=== PATIENT | male | born 1955 | race Hispanic/Latino ===

== ENCOUNTER 2022-10-25 05:47 | Emergency (ER) | payer MEDICARE, MEDICAID ==
[2022-10-25] VITALS (13 sets, daily range): BP systolic 88–141; BP diastolic 51–74
[2022-10-25 06:29] LABS: BASO% 0.4 % (0-3); EOS% 0.5 % (0-8); HEMATOCRIT 42.6 % (39.0-50.0); HEMOGLOBIN 13.3 g/dl (14.0-18.0); IMMATURE GRANULOCYTES 0.2 % (0.0-5.0); LYMPH% 6.7 % (15-41); MEAN CELL VOLUME 82.7 fL CALC (80.0-100.0); MEAN CORPUSCULAR HGB 25.8 pG CALC (26.0-32.0); MEAN CORPUSCULAR HGB CONC 31.2 g/dL CAL (32.0-36.0); MONO% 5.7 % (2-13); NEUT# 9.62 thou/uL (1.82-7.42); NEUT% 86.5 % (42-76); RED BLOOD COUNT 5.15 mill/uL (4.70-6.10); RED CELL DISTRI WIDTH 14.9 % (11.5-15.5)
[2022-10-25 06:30] LABS: URINE BILIRUBIN - DIPSTICK NEGATIVE (NEGATIVE); URINE BLOOD DIPSTICK NEGATIVE (NEGATIVE); URINE COLOR YELLOW; URINE GLUCOSE - DIPSTICK 100 mg/dL (NEGATIVE); URINE KETONE NEGATIVE (NEGATIVE); URINE LEUK ESTERASE NEGATIVE (NEGATIVE); URINE PH 5.5 (4.5-8.0); URINE PROTEIN - DIPSTICK NEGATIVE (NEG-TRACE); URINE UROBILINOGEN - DIPSTICK 0.2 E.U./dL (0.2)
[2022-10-25 06:31] LABS: URINE NITRITE - DIPSTICK NEGATIVE (Negative)
[2022-10-25 06:43] LABS: ALKALINE PHOSPHATASE 133 u/l (38-126); ANION GAP 11 (6-22 (CALC)); BUN 17 mg/dL (8-23); BUN/CREATININE RATIO 12 (12-20 (CALC)); CARBON DIOXIDE 24 mmol/l (22-30); CHLORIDE 109 mmol/l (95-108); CREATININE 1.4 mg/dL (0.7-1.3); GFR FOR AFR.AMER. > 60 ML/MIN (>=60 (CALC)); GFR OTHER RACES 51 ML/MIN (>=60 (CALC)); POTASSIUM 3.6 mmol/l (3.5-5.1); SGOT/AST 41 u/l (19-48); SODIUM 140 mmol/l (137-146); TOTAL PROTEIN 6.8 g/dL (6.3-8.2)
[2022-10-25 06:44] LABS: INTERNATIONAL NORMALIZED RATIO 1.2 RATIO (0.7-1.3); PROTHROMBIN TIME 11.6 SECONDS (9.0-12.5)
[2022-10-25] MEDS ORDERED: PREDNISONE50 MG PO (08:12)
[2022-10-25] MEDS ORDERED: VENTOLIN HFA108 MCG PO (08:12)
[2022-10-25] MEDS ORDERED: ZPAK PO (08:12)
== END 2022-10-25 08:21 | disposition left against medical advice (07) ==
LOC: ED 05:47
PROVIDERS: Emergency Medicine
DX: J44.1 Chronic obstructive pulmonary disease with (acute) exacerbation (principal); I11.0 Hypertensive heart disease with heart failure; I50.9 Heart failure, unspecified; F17.200 Nicotine dependence, unspecified, uncomplicated; Z20.822 Contact with and (suspected) exposure to COVID-19; Z53.29 Procedure and treatment not carried out because of patient's decision for other reasons

== ENCOUNTER 2023-08-11 15:13 | Emergency (ER) | payer MEDICARE, MEDICAID ==
[2023-08-11] VITALS (16 sets, daily range): BP systolic 92–116; BP diastolic 50–64
[~2023-08-11] VITALS: Ht 175.3 cm; Wt 99.7 kg
[~2023-08-11 15:13] MED LIST: PREDNISONE10 MG PO; PREDNISONE50 MG PO; VENTOLIN HFA108 MCG PO; ZPAK PO
[2023-08-11 15:38] LABS: BASO% 0.2 % (0-3); EOS% 0.4 % (0-8); HEMATOCRIT 44.9 % (39.0-50.0); HEMOGLOBIN 14.4 g/dl (14.0-18.0); IMMATURE GRANULOCYTES 0.1 % (0.0-5.0); LYMPH% 7.6 % (15-41); MEAN CELL VOLUME 84.6 fL CALC (80.0-100.0); MEAN CORPUSCULAR HGB 27.1 pG CALC (26.0-32.0); MEAN CORPUSCULAR HGB CONC 32.1 g/dL CAL (32.0-36.0); NEUT# 11.29 thou/uL (1.82-7.42); NEUT% 84.7 % (42-76); RED BLOOD COUNT 5.31 mill/uL (4.70-6.10); RED CELL DISTRI WIDTH 13.2 % (11.5-15.5)
[2023-08-11 15:39] LABS: URINE BILIRUBIN - DIPSTICK Negative (NEGATIVE); URINE BLOOD DIPSTICK Negative (NEGATIVE); URINE GLUCOSE - DIPSTICK 500 mg/dL (NEGATIVE); URINE KETONE Negative (NEGATIVE); URINE LEUK ESTERASE Negative (NEGATIVE); URINE NITRITE - DIPSTICK Negative (Negative); URINE PH 5.5 (4.5-8.0); URINE PROTEIN - DIPSTICK Negative (NEG-TRACE); URINE UROBILINOGEN - DIPSTICK 0.2 E.U./dL (0.2)
[2023-08-11 15:40] LABS: URINE COLOR Yellow
[2023-08-11 15:57] LABS: ALBUMIN 4.4 g/dL (3.2-5.0); ALKALINE PHOSPHATASE 118 u/l (38-126); ANION GAP 14 (6-22 (CALC)); BILIRUBIN, TOTAL 0.8 mg/dL (0.2-1.3); BUN 18 mg/dL (8-23); BUN/CREATININE RATIO 14 (12-20 (CALC)); CARBON DIOXIDE 20 mmol/l (22-30); CHLORIDE 108 mmol/l (95-108); CREATININE 1.3 mg/dL (0.7-1.3); GFR FOR AFR.AMER. > 60 ML/MIN (>=60 (CALC)); GFR OTHER RACES 55 ML/MIN (>=60 (CALC)); POTASSIUM 4.5 mmol/l (3.5-5.1); SGOT/AST 43 u/l (19-48); SODIUM 138 mmol/l (137-146); TOTAL PROTEIN 7.2 g/dL (6.3-8.2)
[2023-08-11] MEDS ORDERED: DOXYCYCLINE100 MG PO (19:35)
== END 2023-08-11 19:40 | disposition left against medical advice (07) ==
LOC: ED 15:13
PROVIDERS: Family Medicine
DX: J44.1 Chronic obstructive pulmonary disease with (acute) exacerbation (principal); R94.31 Abnormal electrocardiogram [ECG] [EKG]; I11.0 Hypertensive heart disease with heart failure; I50.9 Heart failure, unspecified; Z53.29 Procedure and treatment not carried out because of patient's decision for other reasons; Z95.1 Presence of aortocoronary bypass graft; Z20.822 Contact with and (suspected) exposure to COVID-19
CPT/HCPCS: Q9967

== ENCOUNTER 2024-04-21 20:27 | Emergency (ER) | payer MEDICARE, MEDICAID ==
[2024-04-21] VITALS (9 sets, daily range): BP systolic 87–126; BP diastolic 47–90
[~2024-04-21] VITALS: Ht 165.1 cm; Wt 77.0 kg
[~2024-04-21 20:27] MED LIST changes: +DOXYCYCLINE100 MG PO
[2024-04-21] MEDS ORDERED: SODIUM CHLORIDE 0.9% 1,000 ML IV ONE ×2 (20:40→22:00)
[2024-04-21] MEDS ORDERED: PLAVIX75 MG PO (21:09)
[2024-04-21] MEDS ORDERED: INCRUSE EL62.5 MCG/I IN (21:09)
[2024-04-21] MEDS ORDERED: ZESTRIL10 M1 PO (21:10)
[2024-04-21] MEDS ORDERED: FUROSEMIDE20 MG PO (21:10)
[2024-04-21] MEDS ORDERED: ALDACTONE25 MG PO (21:10)
[2024-04-21] MEDS ORDERED: JARDIANCE10 MG PO (21:11)
[2024-04-21] MEDS ORDERED: LIPITOR80 M1 PO (21:11)
[2024-04-21] MEDS ORDERED: ALBUTEROL SUL0.083 % IN (21:12)
[2024-04-21 21:13] LABS: BASO% 0.3 % (0-3); EOS% 0.6 % (0-8); HEMATOCRIT 42.7 % (39.0-50.0); HEMOGLOBIN 13.5 g/dl (14.0-18.0); IMMATURE GRANULOCYTES 0.1 % (0.0-5.0); LYMPH% 12.8 % (15-41); MEAN CELL VOLUME 85.7 fL CALC (80.0-100.0); MEAN CORPUSCULAR HGB 27.1 pG CALC (26.0-32.0); MEAN CORPUSCULAR HGB CONC 31.6 g/dL CAL (32.0-36.0); MONO% 7.5 % (2-13); NEUT# 9.75 thou/uL (1.82-7.42); NEUT% 78.7 % (42-76); RED BLOOD COUNT 4.98 mill/uL (4.70-6.10); RED CELL DISTRI WIDTH 13.2 % (11.5-15.5)
[2024-04-21 21:27] LABS: ALBUMIN 3.6 g/dL (3.2-5.0); BILIRUBIN, TOTAL 0.7 mg/dL (0.2-1.3); CREATININE 1.9 mg/dL (0.7-1.3); MAGNESIUM 2.4 mg/dL (1.6-2.3); POTASSIUM 3.7 mmol/l (3.5-5.1); TOTAL PROTEIN 6.1 g/dL (6.3-8.2)
[2024-04-21 21:56] LABS: TSH, 3RD GENERATION 0.61 uIU/mL (0.47 - 4.68)
[2024-04-21 23:24] LABS: URINE BILIRUBIN - DIPSTICK Negative (NEGATIVE); URINE BLOOD DIPSTICK Negative (NEGATIVE); URINE GLUCOSE - DIPSTICK >=1000 mg/dL (NEGATIVE); URINE KETONE Negative (NEGATIVE); URINE LEUK ESTERASE Negative (NEGATIVE); URINE NITRITE - DIPSTICK Negative (Negative); URINE PH 5.5 (4.5-8.0); URINE PROTEIN - DIPSTICK Negative (NEG-TRACE); URINE UROBILINOGEN - DIPSTICK 0.2 E.U./dL (0.2)
[2024-04-21 23:35] LABS: URINE COLOR Yellow
[2024-04-22 00:16] VITALS: BP 134/79
== END 2024-04-22 00:30 | disposition home or self-care (01) ==
LOC: ED 20:27
PROVIDERS: Family Medicine
DX: R53.1 Weakness (principal); E86.0 Dehydration; I11.0 Hypertensive heart disease with heart failure; I50.9 Heart failure, unspecified; I25.10 Atherosclerotic heart disease of native coronary artery without angina pectoris; Z72.0 Tobacco use; Z20.822 Contact with and (suspected) exposure to COVID-19

== ENCOUNTER 2024-07-30 15:23 | Inpatient (IN) | payer MEDICARE, MEDICAID ==
[2024-07-30] VITALS (72 sets, daily range): BP systolic 98–141; BP diastolic 56–89
[~2024-07-30] VITALS: Ht 165.1 cm; Wt 69.2 kg
[~2024-07-30 15:23] MED LIST changes: +ALBUTEROL SUL0.083 % IN; +ALDACTONE25 MG PO; +FUROSEMIDE20 MG PO; +INCRUSE EL62.5 MCG/I IN; +JARDIANCE10 MG PO; +LIPITOR80 M1 PO; +PLAVIX75 MG PO; +ZESTRIL10 M1 PO
--- NOTE | 2024-07-30 15:25 | NUR ---
pt walked back to er room 6 with a steady gait
[2024-07-30] MEDS ORDERED: dilTIAZem HCL 50 MG/10 ML SDV IV ONE (15:40)
[2024-07-30] MEDS ORDERED: DILTIAZEM HCL 125 MG in SODIUM CHLORIDE 0.9% 100 ML IV ONE (15:40)
[2024-07-30] MEDS ORDERED: ASPIRIN 81 MG/TAB PO ONE (15:40)
[2024-07-30 15:58] LABS: BASO% 0.3 % (0-3); EOS% 0.3 % (0-8); HEMATOCRIT 47.3 % (39.0-50.0); HEMOGLOBIN 14.4 g/dl (14.0-18.0); IMMATURE GRANULOCYTES 0.1 % (0.0-5.0); LYMPH% 12.3 % (15-41); MEAN CELL VOLUME 88.1 fL CALC (80.0-100.0); MEAN CORPUSCULAR HGB 26.8 pG CALC (26.0-32.0); MEAN CORPUSCULAR HGB CONC 30.4 g/dL CAL (32.0-36.0); MONO% 7.1 % (2-13); NEUT# 7.55 thou/uL (1.82-7.42); NEUT% 79.9 % (42-76); RED BLOOD COUNT 5.37 mill/uL (4.70-6.10); RED CELL DISTRI WIDTH 20.6 % (11.5-15.5)
[2024-07-30] MEDS ORDERED: CARVEDILOL3.125 MG PO (15:59)
[2024-07-30] MEDS ORDERED: SODIUM CHLORIDE 0.9% 500 ML IV PRN (16:00)
[2024-07-30] MEDS ORDERED: MACRODANTIN100 MG PO (16:01)
[2024-07-30] MEDS ORDERED: BAYER ASPIRIN E81 MG PO (16:02)
[2024-07-30 16:10] LABS: INTERNATIONAL NORMALIZED RATIO 1.3 RATIO (0.7-1.3)
[2024-07-30 16:11] LABS: PROTHROMBIN TIME 14.2 SECONDS (9.0-12.5)
--- NOTE | 2024-07-30 16:13 | NUR ---
Pt received aspirin and cardizem bolus. Cardizem drip initiated at 1604
[2024-07-30 16:17] LABS: ALBUMIN 4.2 g/dL (3.2-5.0); CREATININE 1.8 mg/dL (0.7-1.3); TOTAL PROTEIN 7.3 g/dL (6.3-8.2)
[2024-07-30 16:20] LABS: BILIRUBIN, TOTAL 2.6 mg/dL (0.2-1.3); POTASSIUM 5.4 mmol/l (3.5-5.1)
[2024-07-30 17:16] LABS: URINE BILIRUBIN - DIPSTICK Negative (NEGATIVE); URINE BLOOD DIPSTICK Small (NEGATIVE); URINE COLOR Yellow; URINE GLUCOSE - DIPSTICK >=1000 mg/dL (NEGATIVE); URINE KETONE Negative (NEGATIVE); URINE LEUK ESTERASE Small (NEGATIVE); URINE NITRITE - DIPSTICK Negative (Negative); URINE PH 5.5 (4.5-8.0); URINE PROTEIN - DIPSTICK 30 mg/dL (NEG-TRACE); URINE SPECIFIC GRAVITY 1.015
[2024-07-30 17:20] LABS: URINE BACTERIA MANY hpf; URINE WBC >100 WBC/hpf (0-5)
--- NOTE | 2024-07-30 17:30 | NUR ---
Reassessment of patient completed. No distress noted. Vital signs stable on Cardizem drip.
--- NOTE | 2024-07-30 17:57 | NUR ---
Stopped Cardizem drip, provider notified. Pt c/o nausea/vomiting.
[2024-07-30] MEDS ORDERED: ONDANSETRON HCl 4 MG/2 ML SDV IV ONE (18:00)
--- NOTE | 2024-07-30 18:28 | NUR ---
Patient reports decrease in nausea after Zofran administration via IV. Resting in stretcher, chest x-ray/lab results pending.
--- NOTE | 2024-07-30 19:00 | NUR ---
RECIEVED REPORT FROM FRANCHESCA CHAPMAN.
[2024-07-30] MEDS ORDERED: Heparin SODIUM (Porcine) 500 ML IV ONE (19:05)
[2024-07-30] MEDS ORDERED: Heparin SODIUM (Porcine) 5,000 UNITS/ML SDV IV ONE (19:05)
[2024-07-30] MEDS ORDERED: MAGNESIUM HYDROXIDE 30 ML UDC PO PRN (19:55)
[2024-07-30] MEDS ORDERED: ACETAMINOPHEN 325 MG/TAB PO PRN (19:55)
[2024-07-30] MEDS ORDERED: Zaleplon 5 MG/CAP PO PRN (19:55)
--- NOTE | 2024-07-30 20:13 | NUR ---
PT GIVEN A MEAL AT THIS TIME.
[2024-07-30] MEDS ORDERED: ATORVASTATIN CALCIUM 40 MG/TAB PO SCH (21:00)
[2024-07-30] MEDS ORDERED: CARVEDILOL 3.125 MG/TAB PO SCH (21:00)
--- NOTE | 2024-07-30 21:30 | NUR ---
PT REPORT GIVEN TO SCOTT CHAPMAN.
--- NOTE | 2024-07-30 21:45 | NUR ---
[place] [facility] [place]
--- NOTE | 2024-07-30 22:00 | NUR ---
RECEIVED REPORT FROM ED NURSE ROSY, PATIENT TRANPORTED VIA WHEELCHAIR IV ON RAC HEPARIN ONGOING AT 800UNIT/HR, AND ANOTHER SALINE LOCK ON LAC. PATINET ON TELEMETRY# 13, PATIENT ALERT ORIENTED AMBULATORY, ARRIVED MS UNIT AT 2143, NOTIFIED MD ABOUT NO BASELINE PTT OBTAIN YET, ORDER TO START HEPARIN PROTOCOL, PATIENT DIABETIC BS 191, NEW ORDER TO START LOW DOSE SLIDING SCALE, AND START ROCEPHIN UTI, PATIENT BRINGING MEDS, PLACED IN MED ROOM, INVENTORY OF PATIENTS BELONGING DONE, PATIENT ORIENTED TO ROOM AND CALL LIGHT SYSTEM, FOOD PROVIDED, ADMISSION ASESSMENT COMPLETED.CALL LIGHT IN REACHED.
--- NOTE | 2024-07-30 22:05 | NUR ---
pt vitals at admission: Temp 97.0 BP 117/79 O2 94 P 67
--- NOTE | 2024-07-30 22:07 | NUR ---
Pt weight at admission 70.6 kg
--- NOTE | 2024-07-30 22:07 | NUR ---
Pt glucose at admission : 191 @2203
--- NOTE | 2024-07-30 22:10 | NUR ---
baseline ptt obtained at this time.
[2024-07-30] MEDS ORDERED: INSULIN LISPRO 100 UNITS/ML ML SC SCH (22:38)
[2024-07-30] MEDS ORDERED: DEXTROSE 250 ML IV PRN (22:40)
[2024-07-30] MEDS ORDERED: DEXTROSE 50% 50 ML/SYR IV PRN (22:40)
--- NOTE | 2024-07-30 23:35 | NUR ---
HELD HEPARIN INFUSION AT 2245,RESULT IS 90.1, RESUME AT 2345.
--- NOTE | 2024-07-30 23:52 | NUR ---
STARTED PATIENT BACK ON HEPARIN 600 U/HR
[2024-07-31] VITALS (9 sets, daily range): BP systolic 99–117; BP diastolic 61–75
--- NOTE | 2024-07-31 03:07 | NUR ---
REMAINS ON HEPARIN DRIP AT 600 UNIT/HR, PATINET NOT IN DSITRESS, NO BLEEDING NOTED CALL LIGHT WITHIN REACHED.
[2024-07-31] MEDS ORDERED: ONDANSETRON HCl 4 MG/2 ML SDV IV SCH (04:10)
--- NOTE | 2024-07-31 04:11 | NUR ---
C/O NAUSEA, ZODRAN GIVEN.
[2024-07-31 06:03] LABS: BASO% 0.5 % (0-3); HEMATOCRIT 43.3 % (39.0-50.0); HEMOGLOBIN 13.2 g/dl (14.0-18.0); LYMPH% 19.4 % (15-41); MEAN CELL VOLUME 87.8 fL CALC (80.0-100.0); MEAN CORPUSCULAR HGB 26.8 pG CALC (26.0-32.0); MEAN CORPUSCULAR HGB CONC 30.5 g/dL CAL (32.0-36.0); MONO% 10.4 % (2-13); NEUT# 6.01 thou/uL (1.82-7.42); NEUT% 67.7 % (42-76); RED BLOOD COUNT 4.93 mill/uL (4.70-6.10); RED CELL DISTRI WIDTH 20.9 % (11.5-15.5)
[2024-07-31 06:31] LABS: CHOLESTEROL HDL RATIO 1.8 (<4.4 (CALC)); MAGNESIUM 2.3 mg/dL (1.6-2.3)
--- NOTE | 2024-07-31 06:34 | NUR ---
PTT 33.4, INCREASESD HEPARIN DRIP 900 UNIT/HR.WILL FAX 4000 UNITS HEPARIN IV BOLUS, NEXT PTT AT 1230.
[2024-07-31] MEDS ORDERED: Heparin SODIUM (Porcine) 5,000 UNITS/ML SDV IV SCH (06:40)
--- NOTE | 2024-07-31 06:55 | NUR ---
pt glucose was 92 @0620
[2024-07-31] MEDS ORDERED: INSULIN LISPRO 100 UNITS/ML ML SC SCH (07:00)
--- NOTE | 2024-07-31 07:13 | NUR ---
PATIENT SITTING UP IN SIDE OF BED. BREATHING UNLABORED ON ROOM AIR. PATIENT A&OX3. TELE INTACT. IV IN RAC INFUSING FLUIDS PER EMAR;SITE CLEAN AND INTACT. IV IN LAC SL;SITE CLEAN AND INTACT. PERSONAL ITEMS WELL CALL LIGHT WITHIN REACH. PT WITH NO C/O OF PAIN OR N/D/V AT THIS TIME. BED IN LOWEST POSITION. NO NEEDS AT THIS TIME. POC ONGOING.
[2024-07-31 08:42] LABS: ALBUMIN 3.4 g/dL (3.2-5.0); BILIRUBIN, TOTAL 1.6 mg/dL (0.2-1.3); CREATININE 1.8 mg/dL (0.7-1.3); POTASSIUM 5.1 mmol/l (3.5-5.1); TOTAL PROTEIN 6.3 g/dL (6.3-8.2)
[2024-07-31] MEDS ORDERED: CLOPIDOGREL BISULFATE 75 MG/TAB TAB PO SCH (09:00)
[2024-07-31] MEDS ORDERED: APIXABAN BASE 5 MG TAB PO SCH (10:30)
[2024-07-31] MEDS ORDERED: METOPROLOL SUCCINATE 50 MG/TAB PO SCH (10:30)
[2024-07-31] MEDS ORDERED: ASPIRIN EC 81 MG/TAB PO SCH (10:30)
--- NOTE | 2024-07-31 11:04 | NUR ---
patient glucose level is 145.
--- NOTE | 2024-07-31 12:27 | NUR ---
PATIENT LYING IN BED WITH EYES CLOSED RESTING. BREATHING UNLABORED ON ROOM AIR. TELE INTACT. IV IN [facility] SL;SITE CLEAN AND INTACT. NO SIGNS OF DISTRESS OR PAIN NOTED AT THIS TIME. PERSONAL ITEMS WELL CALL LIGHT WITHIN REACH. BED IN LOWEST POSITION. NO NEEDS AT THIS TIME. POC ONGOING.
[2024-07-31] MEDS ORDERED: IPRATROPIUM-Albuterol 0.5MG-2.5MG/3 ML NEB PRN (12:45)
--- NOTE | 2024-07-31 16:21 | NUR ---
patient glucose level is 152.
--- NOTE | 2024-07-31 16:40 | NUR ---
PATIENT SITTING UP ON SIDE OF THE BED. BREATHING UNLABORED ON 2L NC. TELE INTACT. IV IN RAC/LAC SL;SITE CLEAN AND INTACT. PT DENIES ANY PAIN OR N/D/V AT THIS TIME. STATES HE IS HUNGRY; INFORMED HIM DINNER IS ON THE WAY AND PROVIDED LIGHT SNACK PER PT'S REQUEST. NO OTHER NEEDS AT THIS TIME. BED IN LOWEST POSITION. POC ONGOING.
--- NOTE | 2024-07-31 18:08 | NUR ---
PATIENT HAD MULTIPLE RUNS OF V-TACH. INFORMED AND AWARE. POC ONGOING.
--- NOTE | 2024-07-31 19:48 | NUR ---
PATIENT IV ON RAC DISLODGE, IV CATH REMOVED, CIV CATH INTACT.
--- NOTE | 2024-07-31 20:00 | NUR ---
RECEIVED REPORT FROM NURSE TANVI, PATIENT SEEN WALKING IN THE HALLWAY, IV ON LACPATENT FLUSHES WELL, DENIES PAIN AT THIS TIME, BREATHING UNLABORED, ON TELEMETRY AFIB 83, PATIENT NOT IN DISTRESS, STATED DID NOT HAVE MUCH SLEEP LAST NIGHT OFFERED SLEEP AID, CALL LIGHT WITHIN REACHED.
--- NOTE | 2024-07-31 23:55 | NUR ---
PATIENT RESTIN GIN BED, EYES CLOSED, BREATHING EVEN UNLABORED, NO DISCOMFORTS NOTE AT THIS TIME, TELEMETRY IN PLACED.
[2024-08-01 00:38] VITALS: BP 92/51
--- NOTE | 2024-08-01 02:29 | NUR ---
PATIENT ACCIDENTALLY PULLED IV, CATHETER INTACT NEW IV INSERTED LFA G 22.
[2024-08-01 03:55] VITALS: BP 115/62
--- NOTE | 2024-08-01 04:57 | NUR ---
PATINET AWAKE AT THIS TIME, REQUESTING COLD WATER TO DRINK, PATINET NOT IN DISTRESS, CALL LIGHT WITHIN [id number].
[2024-08-01 05:45] LABS: BASO% 0.4 % (0-3); EOS% 1.1 % (0-8); HEMOGLOBIN 13.1 g/dl (14.0-18.0); IMMATURE GRANULOCYTES 0.1 % (0.0-5.0); LYMPH% 12.5 % (15-41); MEAN CELL VOLUME 86.2 fL CALC (80.0-100.0); MEAN CORPUSCULAR HGB 26.9 pG CALC (26.0-32.0); MEAN CORPUSCULAR HGB CONC 31.2 g/dL CAL (32.0-36.0); MONO% 8.7 % (2-13); NEUT# 7.2 thou/uL (1.82-7.42); NEUT% 77.2 % (42-76); RED BLOOD COUNT 4.87 mill/uL (4.70-6.10)
[2024-08-01 06:23] LABS: ALBUMIN 3.2 g/dL (3.2-5.0); BILIRUBIN, TOTAL 1.3 mg/dL (0.2-1.3); CREATININE 1.8 mg/dL (0.7-1.3); MAGNESIUM 2.4 mg/dL (1.6-2.3); POTASSIUM 4.6 mmol/l (3.5-5.1); TOTAL PROTEIN 6.2 g/dL (6.3-8.2)
[2024-08-01 06:59] VITALS: BP 108/69
--- NOTE | 2024-08-01 06:59 | NUR ---
pt sugar was 136 @0620
[2024-08-01] MEDS ORDERED: Meropenem 1 GM in SODIUM CHLORIDE 0.9% 100 ML IV SCH (08:00)
--- NOTE | 2024-08-01 08:06 | NUR ---
PT IS ALERT TIMES 4. PT IS A STANDY ASSIST WITH AMBLUTORY IN HIS ROOM FOR STAFEY. PT ATE 100% OF HIS BREAKFAST. PT STARTED NEW IV ABT SECONDARY TO ESBL IN HIS URINE. PT HAS NO C/O PAIN. PT IS S/P HEPRAIN DRIPPING NO OBVIOUS BURISING OR BLEEDING NOTED. ALL SAFETY MEASURES IN PLACE CALL BAILEY WITHIN REACH. NURSING WILL CONTINUE TO MONITOR.
[2024-08-01] MEDS ORDERED: TOPROL XL50 MG PO (09:10)
[2024-08-01] MEDS ORDERED: ELIQUIS5 MG PO (09:10)
[2024-08-01] MEDS ORDERED: ERTAPENEM1 G1 IV (09:11)
[2024-08-01 10:57] VITALS: BP 99/62
[2024-08-01] MEDS ORDERED: ERTAPENEM 1 GM in SODIUM CHLORIDE 0.9% 50 ML IV SCH (11:00)
--- NOTE | 2024-08-01 12:14 | NUR ---
Pt is alert times 4 and can make his needs known. pt is being discharged on this shift. Pt is on IV ABT for esbl in his urine. iv abt given with no a/e noted. pt was educated on his discharge summary. Pt was educated on his IV abt treatments for the next 6 days. Pt verbalized understanding of the discharge instructions. 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 IV site to let A/C was removed after last dose for the day abt was infused. pt left the hospital with all his personal belongings and his discharge summary.
--- NOTE | 2024-08-01 14:18 | NUR ---
Discharge instructions given. Patient verbalizes understanding of same. Discharged in good condition via Wheelchair to Home with family. All belongings sent with pt.
[2024-08-01] MEDS ORDERED: NITROSTAT0.4 MG SL (17:46)
[2024-08-02] MEDS ORDERED: MEDDOSEPAK PO (10:26)
[2024-08-02] MEDS ORDERED: TRAMADOL HYDROC50 M1 PO (10:29)
[2024-08-02] MEDS ORDERED: NITROSTAT0.4 MG SL (10:31)
== END 2024-08-01 13:02 | disposition home or self-care (01) | DRG 309 ==
LOC: ED 15:23 → ED-I 19:10 → ED 19:21 → MS2 19:22
PROVIDERS: Nurse Practitioner; Nurse Practitioner Family; ADMIT Internal Medicine; ATTEND Internal Medicine
DX: I48.91 Unspecified atrial fibrillation (principal); I13.0 Hypertensive heart and chronic kidney disease with heart failure and stage 1 through stage 4 chronic kidney disease, or unspecified chronic kidney disease; N39.0 Urinary tract infection, site not specified; Z16.12 Extended spectrum beta lactamase (ESBL) resistance; B96.20 Unspecified Escherichia coli [E. coli] as the cause of diseases classified elsewhere; I50.9 Heart failure, unspecified; E11.22 Type 2 diabetes mellitus with diabetic chronic kidney disease; N18.9 Chronic kidney disease, unspecified; I25.10 Atherosclerotic heart disease of native coronary artery without angina pectoris; J44.9 Chronic obstructive pulmonary disease, unspecified; E78.5 Hyperlipidemia, unspecified; Z87.891 Personal history of nicotine dependence; Z79.84 Long term (current) use of oral hypoglycemic drugs; Z95.1 Presence of aortocoronary bypass graft
CPT/HCPCS: J0696; J1335; J1644; J1815; J2405

== ENCOUNTER 2024-08-01 13:54 | Observation (INO) | payer MEDICARE, MEDICAID ==
[~2024-08-01] VITALS: Ht 165.1 cm; Wt 67.0 kg
[2024-08-01] VITALS (17 sets, daily range): BP systolic 89–130; BP diastolic 48–92
[~2024-08-01 13:54] MED LIST changes: +BAYER ASPIRIN E81 MG PO; +CARVEDILOL3.125 MG PO; +ELIQUIS5 MG PO; +ERTAPENEM1 G1 IV; +MACRODANTIN100 MG PO; +TOPROL XL50 MG PO
[2024-08-01] MEDS ORDERED: ASPIRIN 81 MG/TAB PO ONE (14:00)
[2024-08-01 14:20] LABS: BASO% 0.7 % (0-3); EOS% 1.5 % (0-8); HEMATOCRIT 44.9 % (39.0-50.0); HEMOGLOBIN 13.7 g/dl (14.0-18.0); IMMATURE GRANULOCYTES 0.1 % (0.0-5.0); LYMPH% 16.7 % (15-41); MEAN CELL VOLUME 89.1 fL CALC (80.0-100.0); MEAN CORPUSCULAR HGB 27.2 pG CALC (26.0-32.0); MEAN CORPUSCULAR HGB CONC 30.5 g/dL CAL (32.0-36.0); MONO% 9.7 % (2-13); NEUT# 6.27 thou/uL (1.82-7.42); NEUT% 71.3 % (42-76); RED BLOOD COUNT 5.04 mill/uL (4.70-6.10); RED CELL DISTRI WIDTH 21.6 % (11.5-15.5)
[2024-08-01] MEDS ORDERED: NITROGLYCERIN 0.4 MG/TAB SL ONE (14:20)
[2024-08-01 15:02] LABS: ALBUMIN 3.2 g/dL (3.2-5.0); ALKALINE PHOSPHATASE 163 u/l (38-126); ANION GAP 14 (6-22 (CALC)); BILIRUBIN, TOTAL 1.1 mg/dL (0.2-1.3); BUN 28 mg/dL (8-23); BUN/CREATININE RATIO 16 (12-20 (CALC)); CARBON DIOXIDE 18 mmol/l (22-30); CHLORIDE 111 mmol/l (95-108); CREATININE 1.8 mg/dL (0.7-1.3); ESTIMATED GFR 40 ML/MIN (>=90 (CALC)); POTASSIUM 4.8 mmol/l (3.5-5.1); SGOT/AST 55 u/l (19-48); SODIUM 137 mmol/l (137-146)
[2024-08-01] MEDS ORDERED: NITROSTAT0.4 MG SL (17:46)
[2024-08-01] MEDS ORDERED: NITROGLYCERIN 2% OINT UD 1 GM/PAK TD ONE (17:55)
[2024-08-01] MEDS ORDERED: ACETAMINOPHEN 325 MG/TAB PO PRN (18:20)
[2024-08-01] MEDS ORDERED: MAGNESIUM HYDROXIDE 30 ML UDC PO PRN (18:20)
[2024-08-01] MEDS ORDERED: Zaleplon 5 MG/CAP PO PRN (18:20)
[2024-08-01] MEDS ORDERED: APIXABAN BASE 5 MG TAB PO SCH (21:00)
[2024-08-01] MEDS ORDERED: Meropenem 1 GM in SODIUM CHLORIDE 0.9% 100 ML IV SCH (22:00)
[2024-08-02 04:10] VITALS: BP 108/66
[2024-08-02 06:17] VITALS: BP 115/68
[2024-08-02] MEDS ORDERED: ASPIRIN EC 81 MG/TAB PO SCH (09:00)
[2024-08-02] MEDS ORDERED: METOPROLOL SUCCINATE 50 MG/TAB PO SCH (09:00)
[2024-08-02 10:06] VITALS: BP 103/62
[2024-08-02] MEDS ORDERED: MEDDOSEPAK PO (10:26)
[2024-08-02] MEDS ORDERED: TRAMADOL HYDROC50 M1 PO (10:29)
[2024-08-02] MEDS ORDERED: NITROSTAT0.4 MG SL (10:31)
[2024-08-02] MEDS ORDERED: ATORVASTATIN CALCIUM 40 MG/TAB PO SCH (17:00)
== END 2024-08-02 13:20 | disposition home or self-care (01) ==
LOC: ED 13:54 → ED-I 17:40 → ED 17:56 → MS2 17:57
PROVIDERS: Family Medicine; ADMIT Internal Medicine; ATTEND Internal Medicine
DX: R07.9 Chest pain, unspecified (principal); I11.0 Hypertensive heart disease with heart failure; I50.9 Heart failure, unspecified; I48.91 Unspecified atrial fibrillation; E11.9 Type 2 diabetes mellitus without complications; I25.10 Atherosclerotic heart disease of native coronary artery without angina pectoris; Z95.1 Presence of aortocoronary bypass graft; Z79.85 Long-term (current) use of injectable non-insulin antidiabetic drugs

== ENCOUNTER 2024-08-08 00:44 | Emergency (ER) | payer MEDICARE, MEDICAID ==
[2024-08-08] VITALS (17 sets, daily range): BP systolic 91–118; BP diastolic 64–82
[~2024-08-08] VITALS: Ht 165.1 cm; Wt 68.0 kg
[~2024-08-08 00:44] MED LIST changes: +MEDDOSEPAK PO; +NITROSTAT0.4 MG SL; +TRAMADOL HYDROC50 M1 PO
[2024-08-08] MEDS ORDERED: METOPROLOL TARTRATE 5 MG/5 ML VIAL IV ONE (00:55)
[2024-08-08] MEDS ORDERED: METOPROLOL TARTRATE 25 MG/TAB PO ONE (00:55)
[2024-08-08 01:10] LABS: BASO% 0.5 % (0-3); EOS% 3.8 % (0-8); HEMATOCRIT 41.8 % (39.0-50.0); HEMOGLOBIN 12.6 g/dl (14.0-18.0); IMMATURE GRANULOCYTES 0.2 % (0.0-5.0); MEAN CELL VOLUME 88.9 fL CALC (80.0-100.0); MEAN CORPUSCULAR HGB 26.8 pG CALC (26.0-32.0); MEAN CORPUSCULAR HGB CONC 30.1 g/dL CAL (32.0-36.0); MONO% 7.4 % (2-13); NEUT# 7.22 thou/uL (1.82-7.42); NEUT% 70.1 % (42-76); RED BLOOD COUNT 4.7 mill/uL (4.70-6.10); RED CELL DISTRI WIDTH 21.6 % (11.5-15.5)
[2024-08-08 01:26] LABS: ALBUMIN 3.4 g/dL (3.2-5.0); CREATININE 1.6 mg/dL (0.7-1.3); POTASSIUM 4.3 mmol/l (3.5-5.1); TOTAL PROTEIN 6.2 g/dL (6.3-8.2)
[2024-08-08] MEDS ORDERED: SODIUM CHLORIDE 0.9% 1,000 ML IV ONE (03:00)
[2024-08-08 03:06] LABS: URINE BILIRUBIN - DIPSTICK Negative (NEGATIVE); URINE BLOOD DIPSTICK Trace-intact (NEGATIVE); URINE GLUCOSE - DIPSTICK 500 mg/dL (NEGATIVE); URINE KETONE Negative (NEGATIVE); URINE LEUK ESTERASE Negative (NEGATIVE); URINE NITRITE - DIPSTICK Negative (Negative); URINE PH 5.5 (4.5-8.0); URINE PROTEIN - DIPSTICK 100 mg/dL (NEG-TRACE); URINE UROBILINOGEN - DIPSTICK 0.2 E.U./dL (0.2)
[2024-08-08 03:08] LABS: URINE COLOR Yellow
[2024-08-08 03:12] LABS: URINE BACTERIA FEW hpf; URINE EPITHELIAL CELLS FEW EPI/hpf (0-FEW)
== END 2024-08-08 05:07 | disposition home or self-care (01) ==
LOC: ED 00:44
PROVIDERS: Family Medicine
DX: R07.9 Chest pain, unspecified (principal); E11.9 Type 2 diabetes mellitus without complications; I11.0 Hypertensive heart disease with heart failure; I50.9 Heart failure, unspecified; Z87.891 Personal history of nicotine dependence; Z79.84 Long term (current) use of oral hypoglycemic drugs

== ENCOUNTER 2024-08-11 19:32 | Emergency (ER) | payer MEDICARE, MEDICAID ==
[~2024-08-11] VITALS: Ht 165.1 cm; Wt 68.0 kg
[2024-08-11 19:57] LABS: BASO% 0.8 % (0-3); EOS% 1.7 % (0-8); HEMATOCRIT 42.7 % (39.0-50.0); IMMATURE GRANULOCYTES 0.1 % (0.0-5.0); LYMPH% 22.8 % (15-41); MEAN CELL VOLUME 87.3 fL CALC (80.0-100.0); MEAN CORPUSCULAR HGB 26.6 pG CALC (26.0-32.0); MEAN CORPUSCULAR HGB CONC 30.4 g/dL CAL (32.0-36.0); NEUT# 5.54 thou/uL (1.82-7.42); NEUT% 66.6 % (42-76); RED BLOOD COUNT 4.89 mill/uL (4.70-6.10); RED CELL DISTRI WIDTH 20.4 % (11.5-15.5)
[2024-08-11 20:08] VITALS: BP 115/82
[2024-08-11 20:08] LABS: ALBUMIN 3.4 g/dL (3.2-5.0); BILIRUBIN, TOTAL 1.3 mg/dL (0.2-1.3); CREATININE 1.8 mg/dL (0.7-1.3); POTASSIUM 4.5 mmol/l (3.5-5.1); TOTAL PROTEIN 6.2 g/dL (6.3-8.2)
[2024-08-11 20:17] LABS: D-DIMER 2.68 mg/L (0.19-0.60); INTERNATIONAL NORMALIZED RATIO 1.5 RATIO (0.7-1.3)
[2024-08-11 20:20] LABS: PROTHROMBIN TIME 15.6 SECONDS (9.0-12.5)
[2024-08-11] MEDS ORDERED: SODIUM CHLORIDE 0.9% 1,000 ML IV ONE (20:40)
[2024-08-11 21:00] VITALS: BP 121/77
[2024-08-11 21:43] LABS: URINE BILIRUBIN - DIPSTICK Negative (NEGATIVE); URINE BLOOD DIPSTICK Negative (NEGATIVE); URINE GLUCOSE - DIPSTICK >=1000 mg/dL (NEGATIVE); URINE KETONE Negative (NEGATIVE); URINE LEUK ESTERASE Negative (NEGATIVE); URINE NITRITE - DIPSTICK Negative (Negative); URINE PROTEIN - DIPSTICK 100 mg/dL (NEG-TRACE); URINE UROBILINOGEN - DIPSTICK 0.2 E.U./dL (0.2)
[2024-08-11 21:44] LABS: URINE COLOR Yellow
[2024-08-11 21:53] LABS: URINE RBC 0-2 RBC/hpf (0-5); URINE WBC 0-2 WBC/hpf (0-5)
[2024-08-11 21:54] LABS: URINE HYALINE CAST FEW lpf (NONE-RARE); URINE RENAL EPITHELIAL CELLS FEW hpf
[2024-08-11 23:00] VITALS: BP 123/80
[2024-08-12] VITALS: BP 131/90
[2024-08-12 02:14] VITALS: BP 131/90
== END 2024-08-12 01:11 | disposition home or self-care (01) ==
LOC: ED 19:32
PROVIDERS: Family Medicine
DX: R06.02 Shortness of breath (principal); I11.0 Hypertensive heart disease with heart failure; I50.9 Heart failure, unspecified; E11.9 Type 2 diabetes mellitus without complications; Z95.1 Presence of aortocoronary bypass graft
CPT/HCPCS: Q9967

== ENCOUNTER 2024-08-16 15:23 | Observation (INO) | payer MEDICARE, MEDICAID ==
[~2024-08-16] VITALS: Ht 165.1 cm; Wt 77.2 kg
[2024-08-16] VITALS (9 sets, daily range): BP systolic 105–139; BP diastolic 66–86
[2024-08-16 16:00] LABS: BASO% 0.4 % (0-3); HEMOGLOBIN 14.2 g/dl (14.0-18.0); LYMPH% 12.4 % (15-41); MEAN CELL VOLUME 87.9 fL CALC (80.0-100.0); MEAN CORPUSCULAR HGB 26.5 pG CALC (26.0-32.0); MEAN CORPUSCULAR HGB CONC 30.2 g/dL CAL (32.0-36.0); MONO% 6.6 % (2-13); NEUT# 7.68 thou/uL (1.82-7.42); NEUT% 80.6 % (42-76); RED BLOOD COUNT 5.35 mill/uL (4.70-6.10); RED CELL DISTRI WIDTH 19.7 % (11.5-15.5)
[2024-08-16 16:12] LABS: ALBUMIN 3.7 g/dL (3.2-5.0); ALKALINE PHOSPHATASE 162 u/l (38-126); BILIRUBIN, TOTAL 1.6 mg/dL (0.2-1.3); BUN 26 mg/dL (8-23); BUN/CREATININE RATIO 14 (12-20 (CALC)); CHLORIDE 112 mmol/l (95-108); CREATININE 1.9 mg/dL (0.7-1.3); ESTIMATED GFR 38 ML/MIN (>=90 (CALC)); SGOT/AST 40 u/l (19-48); SODIUM 139 mmol/l (137-146); TOTAL PROTEIN 6.7 g/dL (6.3-8.2)
[2024-08-16 16:18] LABS: ANION GAP 20 (6-22 (CALC)); CARBON DIOXIDE 12 mmol/l (22-30)
[2024-08-16] MEDS ORDERED: FUROSEMIDE 40 MG/4 ML SDV IV ONE (17:05)
[2024-08-16] MEDS ORDERED: ASPIRIN 81 MG/TAB PO ONE (18:25)
[2024-08-16] MEDS ORDERED: NITROGLYCERIN 0.4 MG/TAB SL SCH (19:00)
[2024-08-16] MEDS ORDERED: ACETAMINOPHEN 325 MG/TAB PO PRN (19:00)
[2024-08-16] MEDS ORDERED: oxyCODONE HCL 5 MG/TAB PO PRN (19:00)
[2024-08-16] MEDS ORDERED: Polyethylene Glycol 3350 17 GM/PKT PO PRN (19:00)
[2024-08-16] MEDS ORDERED: ONDANSETRON 4 MG/TAB ODT SL PRN (19:00)
[2024-08-16 19:04] LABS: CHOLESTEROL HDL RATIO 2.2 (<4.4 (CALC))
[2024-08-16 19:36] LABS: TSH, 3RD GENERATION 2.51 uIU/mL (0.47 - 4.68)
[2024-08-16] MEDS ORDERED: APIXABAN BASE 5 MG TAB PO SCH (21:00)
[2024-08-16] MEDS ORDERED: INSULIN LISPRO 100 UNITS/ML ML SC SCH (21:00)
[2024-08-17] VITALS (7 sets, daily range): BP systolic 94–120; BP diastolic 56–80
[2024-08-17 06:42] LABS: BASO% 0.6 % (0-3); EOS% 0.4 % (0-8); HEMATOCRIT 42.6 % (39.0-50.0); IMMATURE GRANULOCYTES 0.1 % (0.0-5.0); LYMPH% 16.4 % (15-41); MEAN CELL VOLUME 85.4 fL CALC (80.0-100.0); MEAN CORPUSCULAR HGB 26.1 pG CALC (26.0-32.0); MEAN CORPUSCULAR HGB CONC 30.5 g/dL CAL (32.0-36.0); NEUT# 7.47 thou/uL (1.82-7.42); NEUT% 73.5 % (42-76); RED BLOOD COUNT 4.99 mill/uL (4.70-6.10); RED CELL DISTRI WIDTH 19.6 % (11.5-15.5)
[2024-08-17 06:50] LABS: ALBUMIN 3.1 g/dL (3.2-5.0); BILIRUBIN, TOTAL 1.1 mg/dL (0.2-1.3); CREATININE 1.9 mg/dL (0.7-1.3); POTASSIUM 4.6 mmol/l (3.5-5.1); TOTAL PROTEIN 5.9 g/dL (6.3-8.2)
[2024-08-17] MEDS ORDERED: ASPIRIN EC 81 MG/TAB PO SCH (09:00)
[2024-08-17] MEDS ORDERED: METOPROLOL SUCCINATE 50 MG/TAB PO SCH (09:00)
[2024-08-17] MEDS ORDERED: SPIRONOLACTONE 25 MG/TAB PO SCH (09:00)
[2024-08-17] MEDS ORDERED: NITROGLYCERIN 0.4 MG/TAB SL PRN (09:30)
[2024-08-17] MEDS ORDERED: FUROSEMIDE 40 MG/4 ML SDV IV SCH (10:00)
[2024-08-17] MEDS ORDERED: ATORVASTATIN CALCIUM 40 MG/TAB PO SCH (17:00)
[2024-08-18 01:10] VITALS: BP 95/64
[2024-08-18 04:36] VITALS: BP 103/62
[2024-08-18 05:29] LABS: BASO% 0.5 % (0-3); EOS% 1.3 % (0-8); HEMATOCRIT 42.4 % (39.0-50.0); HEMOGLOBIN 13.4 g/dl (14.0-18.0); IMMATURE GRANULOCYTES 0.1 % (0.0-5.0); LYMPH% 22.3 % (15-41); MEAN CELL VOLUME 85.5 fL CALC (80.0-100.0); MEAN CORPUSCULAR HGB CONC 31.6 g/dL CAL (32.0-36.0); MONO% 9.7 % (2-13); NEUT# 6.02 thou/uL (1.82-7.42); NEUT% 66.1 % (42-76); RED BLOOD COUNT 4.96 mill/uL (4.70-6.10); RED CELL DISTRI WIDTH 19.5 % (11.5-15.5)
[2024-08-18 05:31] LABS: ALBUMIN 2.9 g/dL (3.2-5.0); BILIRUBIN, TOTAL 1.2 mg/dL (0.2-1.3); CREATININE 1.9 mg/dL (0.7-1.3); MAGNESIUM 1.9 mg/dL (1.6-2.3); POTASSIUM 4.2 mmol/l (3.5-5.1); TOTAL PROTEIN 5.6 g/dL (6.3-8.2)
[2024-08-18 07:35] VITALS: BP 112/70
[2024-08-18 08:47] VITALS: BP 112/70
[2024-08-18] MEDS ORDERED: PATIENT' OWN MED 1 EA DOSE PO SCH (09:00)
[2024-08-18] MEDS ORDERED: LASIX20 MG PO ×2 (09:58→10:02)
== END 2024-08-18 11:42 | disposition home or self-care (01) ==
LOC: ED 15:23 → ED-I 18:18 → ED 18:48 → MS2 18:49
PROVIDERS: Family Medicine; ADMIT Internal Medicine; ATTEND Internal Medicine
DX: R07.89 Other chest pain (principal); I13.0 Hypertensive heart and chronic kidney disease with heart failure and stage 1 through stage 4 chronic kidney disease, or unspecified chronic kidney disease; I50.23 Acute on chronic systolic (congestive) heart failure; E11.22 Type 2 diabetes mellitus with diabetic chronic kidney disease; N18.9 Chronic kidney disease, unspecified; I48.0 Paroxysmal atrial fibrillation; I25.10 Atherosclerotic heart disease of native coronary artery without angina pectoris; T50.1X6A Underdosing of loop [high-ceiling] diuretics, initial encounter; Z91.128 Patient's intentional underdosing of medication regimen for other reason; Z95.1 Presence of aortocoronary bypass graft; Z79.84 Long term (current) use of oral hypoglycemic drugs; Z95.0 Presence of cardiac pacemaker; Z87.891 Personal history of nicotine dependence; Z20.822 Contact with and (suspected) exposure to COVID-19
CPT/HCPCS: J1940

== ENCOUNTER 2024-08-23 12:46 | Emergency (ER) | payer MEDICARE, MEDICAID ==
[2024-08-23] VITALS (35 sets, daily range): BP systolic 100–126; BP diastolic 54–90
[~2024-08-23] VITALS: Ht 165.1 cm; Wt 82.0 kg
[~2024-08-23 12:46] MED LIST changes: +LASIX20 MG PO
[2024-08-23] MEDS ORDERED: NITROGLYCERIN 0.4 MG/TAB SL ONE (13:05)
[2024-08-23] MEDS ORDERED: ASPIRIN 81 MG/TAB PO ONE (13:05)
[2024-08-23 13:26] LABS: BASO% 0.2 % (0-3); EOS% 0.3 % (0-8); HEMATOCRIT 44.4 % (39.0-50.0); HEMOGLOBIN 13.6 g/dl (14.0-18.0); IMMATURE GRANULOCYTES 0.2 % (0.0-5.0); LYMPH% 7.5 % (15-41); MEAN CELL VOLUME 85.1 fL CALC (80.0-100.0); MEAN CORPUSCULAR HGB 26.1 pG CALC (26.0-32.0); MEAN CORPUSCULAR HGB CONC 30.6 g/dL CAL (32.0-36.0); NEUT# 7.63 thou/uL (1.82-7.42); NEUT% 87.8 % (42-76); RED BLOOD COUNT 5.22 mill/uL (4.70-6.10); RED CELL DISTRI WIDTH 19.4 % (11.5-15.5)
[2024-08-23 13:32] LABS: CREATININE 2.1 mg/dL (0.7-1.3); TOTAL PROTEIN 6.7 g/dL (6.3-8.2)
[2024-08-23 13:40] LABS: ALBUMIN 3.6 g/dL (3.2-5.0); BILIRUBIN, TOTAL 2.2 mg/dL (0.2-1.3); POTASSIUM 5.3 mmol/l (3.5-5.1)
== END 2024-08-23 18:38 | disposition home or self-care (01) ==
LOC: ED 12:46
PROVIDERS: Family Medicine
DX: I25.729 Atherosclerosis of autologous artery coronary artery bypass graft(s) with unspecified angina pectoris (principal); I11.0 Hypertensive heart disease with heart failure; I50.9 Heart failure, unspecified; E11.9 Type 2 diabetes mellitus without complications; I48.91 Unspecified atrial fibrillation; Z79.01 Long term (current) use of anticoagulants; Z95.1 Presence of aortocoronary bypass graft; Z79.84 Long term (current) use of oral hypoglycemic drugs

== ENCOUNTER 2024-08-29 08:06 | Emergency (ER) | payer MEDICARE, MEDICAID ==
[2024-08-29] VITALS (16 sets, daily range): BP systolic 103–144; BP diastolic 60–101
[~2024-08-29] VITALS: Ht 165.1 cm; Wt 84.0 kg
[2024-08-29] MEDS ORDERED: ALBUTEROL SULFATE 2.5 MG VIAL IN ONE (10:50)
[2024-08-29 11:11] LABS: BASO% 0.1 % (0-3); HEMATOCRIT 46.2 % (39.0-50.0); HEMOGLOBIN 14.2 g/dl (14.0-18.0); IMMATURE GRANULOCYTES 0.2 % (0.0-5.0); LYMPH% 6.5 % (15-41); MEAN CELL VOLUME 84.3 fL CALC (80.0-100.0); MEAN CORPUSCULAR HGB 25.9 pG CALC (26.0-32.0); MEAN CORPUSCULAR HGB CONC 30.7 g/dL CAL (32.0-36.0); NEUT# 12.57 thou/uL (1.82-7.42); NEUT% 82.2 % (42-76); RED BLOOD COUNT 5.48 mill/uL (4.70-6.10)
[2024-08-29 11:19] LABS: ALBUMIN 3.3 g/dL (3.2-5.0); BILIRUBIN, TOTAL 1.8 mg/dL (0.2-1.3); CREATININE 2.4 mg/dL (0.7-1.3)
[2024-08-29 11:24] LABS: POTASSIUM 5.5 mmol/l (3.5-5.1)
[2024-08-29] MEDS ORDERED: VENTOLIN HFA108 MCG PO (13:36)
[2024-08-29] MEDS ORDERED: ONDANSETRON4 MG PO (13:36)
[2024-08-29] MEDS ORDERED: ONDANSETRON HCl 4 MG/2 ML SDV IV ONE (13:45)
== END 2024-08-29 14:04 | disposition home or self-care (01) ==
LOC: ED 08:06
PROVIDERS: Emergency Medicine
DX: J45.909 Unspecified asthma, uncomplicated (principal); E11.9 Type 2 diabetes mellitus without complications; I11.0 Hypertensive heart disease with heart failure; I50.9 Heart failure, unspecified; Z95.1 Presence of aortocoronary bypass graft
CPT/HCPCS: J2405

== ENCOUNTER 2024-09-08 13:38 | Observation (INO) | payer MEDICARE, MEDICAID ==
[~2024-09-08] VITALS: Ht 165.1 cm; Wt 84.0 kg
[2024-09-08] VITALS (25 sets, daily range): BP systolic 92–136; BP diastolic 64–94
[~2024-09-08 13:38] MED LIST changes: +ONDANSETRON4 MG PO
--- NOTE | 2024-09-08 13:40 | NUR ---
PT TO ROOM FOUR VIA WC.
[2024-09-08 14:16] LABS: BASO% 0.4 % (0-3); EOS% 0.3 % (0-8); HEMATOCRIT 46.2 % (39.0-50.0); HEMOGLOBIN 14.1 g/dl (14.0-18.0); IMMATURE GRANULOCYTES 0.2 % (0.0-5.0); LYMPH% 10.6 % (15-41); MEAN CELL VOLUME 83.4 fL CALC (80.0-100.0); MEAN CORPUSCULAR HGB 25.5 pG CALC (26.0-32.0); MEAN CORPUSCULAR HGB CONC 30.5 g/dL CAL (32.0-36.0); MONO% 7.1 % (2-13); NEUT# 8.54 thou/uL (1.82-7.42); NEUT% 81.4 % (42-76); RED BLOOD COUNT 5.54 mill/uL (4.70-6.10); RED CELL DISTRI WIDTH 19.4 % (11.5-15.5)
[2024-09-08 14:40] LABS: ALBUMIN 3.3 g/dL (3.2-5.0); CREATININE 2.7 mg/dL (0.7-1.3); POTASSIUM 4.5 mmol/l (3.5-5.1); TOTAL PROTEIN 6.2 g/dL (6.3-8.2)
--- NOTE | 2024-09-08 14:40 | NUR ---
PT RESTING COMFORTABLY IN ROOM
[2024-09-08 15:04] LABS: URINE BILIRUBIN - DIPSTICK Negative (NEGATIVE); URINE BLOOD DIPSTICK Small (NEGATIVE); URINE COLOR Yellow; URINE GLUCOSE - DIPSTICK 500 mg/dL (NEGATIVE); URINE KETONE Negative (NEGATIVE); URINE LEUK ESTERASE Negative (NEGATIVE); URINE NITRITE - DIPSTICK Negative (Negative); URINE PH 5.5 (4.5-8.0); URINE PROTEIN - DIPSTICK 100 mg/dL (NEG-TRACE); URINE SPECIFIC GRAVITY 1.015; URINE UROBILINOGEN - DIPSTICK 0.2 E.U./dL (0.2)
[2024-09-08] MEDS ORDERED: SODIUM CHLORIDE 0.9% 1,000 ML IV ONE (15:05)
[2024-09-08 15:14] LABS: URINE SQUAMOUS EPITHELIAL CELL FEW EPI/hpf (0-FEW); URINE WBC 0-2 WBC/hpf (0-5)
[2024-09-08 15:15] LABS: URINE BACTERIA RARE hpf
--- NOTE | 2024-09-08 15:30 | NUR ---
PT RESTING IN BED, PT GIVEN BLANKET FOR COMFORT, PT STATES HE DOES NOT NEED ANYTHING AT THIS TIME
[2024-09-08] MEDS ORDERED: BREZTRI AEROSPH1 AER (15:37)
--- NOTE | 2024-09-08 16:13 | NUR ---
PT AND FAMILY UPDATED ON POC, PT STATES HE HAS NO NEEDS AT THIS TIME
[2024-09-08 17:51] LABS: CREATININE 2.6 mg/dL (0.7-1.3); POTASSIUM 4.4 mmol/l (3.5-5.1)
--- NOTE | 2024-09-08 17:57 | NUR ---
PT RESTING IN BED, PT GIVEN BLANKET FOR COMFORT, CALL BAILEY IN REACH
--- NOTE | 2024-09-08 18:50 | NUR ---
PT RESTING IN ROOM, CALL BAILEY WITHIN REACH
--- NOTE | 2024-09-08 18:58 | NUR ---
CALLED [facility] SPOKE WITH ADELA LEYVA, GAVE PT INFO, PT TO BE TRANSPORTED TO [facility] [address]
[2024-09-08] MEDS ORDERED: SODIUM CHLORIDE 0.9% 1,000 ML IV PRN (19:35)
[2024-09-08] MEDS ORDERED: MAGNESIUM HYDROXIDE 30 ML UDC PO PRN (19:35)
[2024-09-08] MEDS ORDERED: ACETAMINOPHEN 325 MG/TAB PO PRN (19:35)
--- NOTE | 2024-09-08 19:58 | NUR ---
Admission Note Report Given to: AUTUMN. RN Transported by: X Wheelchair Stretcher Transported with: X Nurse Transporter X Patent IV O2 X Suppression Crew Leader Location: ICU X [facility]
[2024-09-08] MEDS ORDERED: APIXABAN BASE 2.5 MG/TAB TAB PO SCH (21:00)
--- NOTE | 2024-09-08 21:20 | NUR ---
PT ARRIVED TO MED-SURG FLOOR AROUND 2001 VIA WHEELCHAIR. REPORT RECEIVED FROM ER NURSE. ADMISSION AND BODY ASSESSMENT COMPLETED AT THIS TIME. PT WAS ABLE TO WALK FROM WHEELCHAIR TO THE BED. PT IS ALERT AND ORIENTED X4. DENIES ANY PAIN AT THIS MOMENT, RESPS ARE EVEN AND UNLABORED ON ROOM AIR. NO VISUAL SIGNS OF DISTRESS NOTED. TELE MONITOR #[address] WORKING WELL WITH LEADS INTACT. BLOOD SUGAR WAS CHECKED UPON [id number]. 20 G TO LAC FLUSHED WITH IV FLUIDS NORMAL SALINE ORDERED, SCHEDULED MEDS GIVEN TO PT. ABDOMEN IS DISTENDED BUT SOFT WITH ACTIVE BOWEL SOUNDS. EDEMA NOTED TO LESLIE FEET +2 WITH WEAK PEDAL PULSES, INSTRUCTED TO CALL FOR ASSISTANCE NEEDED. CALL LIGHT IS IN REACH AND SAFETY PRECAUTIONS IN PLACE.
[2024-09-09] VITALS (9 sets, daily range): BP systolic 95–114; BP diastolic 60–79
--- NOTE | 2024-09-09 | NUR ---
PATIENT RESTING IN BED WITH EYES CLOSED AT THIS TIME. BRETAHING IS EVEN AN DUNLABORED ON ROOM AIR. TELE MONITOR IN PLACE RUNNING A-FIB-84 AT THIS MOMENT. IVF NS INFUSING VIA LAC ORDERED. CALL LIGTH IS IN REACH AND SAFETY PRECAUTIONS IN PLACE.
--- NOTE | 2024-09-09 05:08 | NUR ---
PATIENT SITTING UP ON THE EDGE OF THE BED AT THIS TIME. DENIES ANY NEEDS, RESPS ARE EVEN AND UNLABORED NO VISUAL SIGNS OF DISTRESS, TELE MONITOR IN PLACE. IVF NS INFUSING ORDERED. CALL LIGHT IS IN REACH AND SAFETY PRECAUTIONS IN PLACE.
--- NOTE | 2024-09-09 07:28 | NUR ---
PATIENT A/O X3; ROOM AIR; BREATHING UNLABORED AND EVEN; DENIED ANY PAIN; DENIED ANY N/D/V AT THIS TIME; ASSESSMENT COMPLETED; PITTING EDEMA ON BULATERL FEET AND ANKLES, APPLIED COMPRESSION SOCKS; IV SITE CLEAN AND INTACT RUNNING WITH NS @100; TELE LEADS INTACT AND WORKING WITH NO ISSUES; CALL LIGHT WITHIN REACH,VERBALIZED UNDERSTANDING ON HOW TO USE, PERSONAL ITEMS WITHIN REACH; BEDIN LOWEST POSTION;SAFETY MEASURES IN PLACE; PATIENT LAYING ON RIGHT SIDE WITH NO COMPLAINTS
[2024-09-09 08:00] LABS: BASO% 0.6 % (0-3); EOS% 0.2 % (0-8); HEMATOCRIT 42.7 % (39.0-50.0); HEMOGLOBIN 13.4 g/dl (14.0-18.0); IMMATURE GRANULOCYTES 0.1 % (0.0-5.0); LYMPH% 11.3 % (15-41); MEAN CELL VOLUME 82.1 fL CALC (80.0-100.0); MEAN CORPUSCULAR HGB 25.8 pG CALC (26.0-32.0); MEAN CORPUSCULAR HGB CONC 31.4 g/dL CAL (32.0-36.0); MONO% 7.6 % (2-13); NEUT# 8.53 thou/uL (1.82-7.42); NEUT% 80.2 % (42-76); RED BLOOD COUNT 5.2 mill/uL (4.70-6.10); RED CELL DISTRI WIDTH 19.5 % (11.5-15.5)
[2024-09-09 08:12] LABS: BILIRUBIN, TOTAL 2.1 mg/dL (0.2-1.3); CREATININE 2.7 mg/dL (0.7-1.3); POTASSIUM 4.5 mmol/l (3.5-5.1); TOTAL PROTEIN 5.8 g/dL (6.3-8.2)
[2024-09-09 08:26] LABS: MAGNESIUM 2.5 mg/dL (1.6-2.3)
[2024-09-09] MEDS ORDERED: ASPIRIN EC 81 MG/TAB PO SCH (09:00)
[2024-09-09] MEDS ORDERED: METOPROLOL SUCCINATE 50 MG/TAB PO SCH (09:00)
[2024-09-09 09:17] LABS: TOTAL PROTEIN 5.8 g/dL (6.3-8.2)
[2024-09-09] MEDS ORDERED: SPIRONOLACTONE 25 MG/TAB PO SCH (10:30)
[2024-09-09 10:50] LABS: URINE BILIRUBIN - DIPSTICK Negative (NEGATIVE); URINE BLOOD DIPSTICK Trace-intact (NEGATIVE); URINE COLOR Yellow; URINE GLUCOSE - DIPSTICK 500 mg/dL (NEGATIVE); URINE KETONE Negative (NEGATIVE); URINE LEUK ESTERASE Negative (NEGATIVE); URINE NITRITE - DIPSTICK Negative (Negative); URINE PH 5.5 (4.5-8.0); URINE PROTEIN - DIPSTICK 30 mg/dL (NEG-TRACE); URINE SPECIFIC GRAVITY 1.015; URINE UROBILINOGEN - DIPSTICK 0.2 E.U./dL (0.2)
--- NOTE | 2024-09-09 10:53 | NUR ---
SPOKE TO SISTER, REGARDING PATIENT STATUS
--- NOTE | 2024-09-09 12:40 | NUR ---
PATIENT IN BED EATING LUNCH WITH NO ISSUES; DENIED ANY PAIN;DENIED ANY N/D/V AT THIS TIME; IV SITE CLEAN AND INTACT RUNNING; TELE LEADS INTACT AND WORKING AT THIS TIME; NO PAIN OR COMPLAINTS AT THIS TIME; DNEIED ANY N/D/V AT THIS SCOTT; NO S.S OF DISTRESS; CALL LIGHT WITHIN REACH; VERBALIZED UNDERSTANDING ON HOW TO USE, PERSONAL ITEMS WITHIN REACH; BED IN LOWEST POSTION;SAFETY MEASURES INPLACE
--- NOTE | 2024-09-09 16:21 | NUR ---
PATEINT RESTING IN BED; ROOM AIR; BREATHING UNLABROED AND EVEN;DENEID ANY PAIN; DENIED ANY ND/V/ AT THIS TIME; NO S.S OF DISTRESS; IV SITE CLEAN AND INTACT; NO COMPAINTS; TELE LEADS INTACT AND WORKING, SUPERVISOR STONE IN ROOM GETTIG GLUCOSE;CALL LIGHT WITHIN REACH, VERBALIZED UNDERSTANDING ON HOW TO USE, PERSONAL ITEMS WITHIN REACH; BEDIN LOWEST POSTION SAFETY MEASURES INPLACE
--- NOTE | 2024-09-09 19:26 | NUR ---
PATIENT IS SITTING UP ON THE SIDE OF THE BED AT THIS MOMENT. ALERT AND ORIENTED X3. DENIES ANY PAIN, NAUSEA OR VOMITING. RESPS ARE EVEN AND UNLABORED ON ROOM AIR. LUNGS ARE CLEAR ALL THROUGHOUT. TELE MONITOR IS IN PLACE SHOWING A-FIB AT THIS MOMENT. SKIN TO LOWER EXTREMITIES IS COL AND DRY. PT STILL HAS SOME EDEMA +2. JANETT HOOSE AND SAFETY SOCKS ON PLACE. IV FLUIDS NORMAL SALINE PATENT AND INFUSING VIA 20 G L A/C AT THI TIME. DEMIES AMPARO ADDITIONAL NEEDS. EDUCATED ON ELVATION OF THE LOWER EXTREMITIES TO DECREASE SWELLING. INSTRUCTED TO CALL FOR ASSISTANCE NEEDED. CALL LIGHT IS IN REACH AND SAFETY PRECAUTIONS IN PLACE.
--- NOTE | 2024-09-09 21:41 | NUR ---
IVF NS STOPPED AT THIS TIME.
[2024-09-10] VITALS (9 sets, daily range): BP systolic 99–151; BP diastolic 58–76
--- NOTE | 2024-09-10 | NUR ---
PT RESTING IN BED IN SUPINE POSITION. BREATHING IS EVEN AND UNLABORED. TELE MONITOR IN PLACE SHOWING A-FIB-95 AT THIS TIME. CALL LIGHT IS IN REACH AND SAFETY PRECAUTIONS IN PLACE.
--- NOTE | 2024-09-10 04:00 | NUR ---
PT LAYING IN BED TO HIS SIDE WITH EYES CLOSED. RESPS ARE EVEN AND UNLABORED ON ROOM AIR. TELE MONITOR SHOWING A-FIB-86 AT THIS TIME. CALL LIGHT IS IN REACH AND SAFETY PRECAUTIONS IN PLACE.
[2024-09-10 05:57] LABS: ALBUMIN 3.1 g/dL (3.2-5.0); BILIRUBIN, TOTAL 1.8 mg/dL (0.2-1.3); CREATININE 2.6 mg/dL (0.7-1.3); MAGNESIUM 2.6 mg/dL (1.6-2.3); POTASSIUM 4.6 mmol/l (3.5-5.1); TOTAL PROTEIN 5.8 g/dL (6.3-8.2)
[2024-09-10 06:02] LABS: BASO% 0.7 % (0-3); EOS% 0.8 % (0-8); HEMATOCRIT 44.5 % (39.0-50.0); HEMOGLOBIN 13.8 g/dl (14.0-18.0); IMMATURE GRANULOCYTES 0.2 % (0.0-5.0); LYMPH% 16.6 % (15-41); MEAN CELL VOLUME 83.8 fL CALC (80.0-100.0); MONO% 8.8 % (2-13); NEUT# 7.23 thou/uL (1.82-7.42); NEUT% 72.9 % (42-76); RED BLOOD COUNT 5.31 mill/uL (4.70-6.10); RED CELL DISTRI WIDTH 19.5 % (11.5-15.5)
--- NOTE | 2024-09-10 08:10 | NUR ---
PT IS FOUND TO BE A&O x4 IN BED. PT STATES HE IS COMFORTABLE AND HE IS STABLE. PT CAN MOVE ALL EXTREMITES; SBA OOB. PLAN OF CARE WAS REVIEWED; NO FURTHER QUESTIONS AT THIS TIME. CALL LIGHT IS WITHIN REACH.
[2024-09-10] MEDS ORDERED: FUROSEMIDE 40 MG/TAB PO SCH (11:00)
[2024-09-10] MEDS ORDERED: AZITHROMYCIN 500 MG in SODIUM CHLORIDE 0.9% 250 ML IV SCH (11:00)
[2024-09-10 11:53] LABS: ALBUMIN 3.1 g/dL (3.2-5.0); BILIRUBIN, TOTAL 1.6 mg/dL (0.2-1.3); TOTAL PROTEIN 5.8 g/dL (6.3-8.2)
--- NOTE | 2024-09-10 12:00 | NUR ---
PT'S CONDITION REMAINS THE SAME; CALL LIGHT IS WTIHIN REACH. NO FURTHER NEEDS.
--- NOTE | 2024-09-10 16:00 | NUR ---
PT'S CONDITION REMAINS THE SAME. CALL LIGHT IS WITHIN REACH.
--- NOTE | 2024-09-10 20:00 | NUR ---
RECEIVED REPORT FROM NURSE BONITA, PATIENT RESTING IN BED, ALERT ORIENTED, ABLE TO MAKE NEEDS KNONW, IV ON LAC G 20 PATENT FLSUHES WELL, ON TELEMETRY, DENIES PAIN AT THIS TIME. REMAINS ON ISOLATION HX OF ESBL, SAFETY PRECAUTION REINFORCED.
--- NOTE | 2024-09-11 00:10 | NUR ---
PATIENT SITTING IN BED, VOIDED IN URINAL PATIENT BREATHING EVEN UNLABORED. ON O2 AT 2LPM VIA NC, STATED WEARS O2 @ HOME. CALL LIGHT WITHIN REACHED.
[2024-09-11 03:29] VITALS: BP 116/85
--- NOTE | 2024-09-11 03:37 | NUR ---
kalyan rfesting in bed,awake, v/s obtained, patient voided in urinal, doocumented, patient weighed 84kg digital standing scale,patient sitting in bed, call light with reached.
[2024-09-11 06:04] LABS: BASO% 0.6 % (0-3); HEMATOCRIT 43.6 % (39.0-50.0); HEMOGLOBIN 13.5 g/dl (14.0-18.0); IMMATURE GRANULOCYTES 0.1 % (0.0-5.0); LYMPH% 15.1 % (15-41); MEAN CELL VOLUME 82.3 fL CALC (80.0-100.0); MEAN CORPUSCULAR HGB 25.5 pG CALC (26.0-32.0); NEUT# 8.25 thou/uL (1.82-7.42); NEUT% 76.2 % (42-76); RED BLOOD COUNT 5.3 mill/uL (4.70-6.10); RED CELL DISTRI WIDTH 19.7 % (11.5-15.5)
[2024-09-11 06:10] LABS: CREATININE 2.7 mg/dL (0.7-1.3); MAGNESIUM 2.4 mg/dL (1.6-2.3); POTASSIUM 4.5 mmol/l (3.5-5.1); TOTAL PROTEIN 5.6 g/dL (6.3-8.2)
[2024-09-11 07:00] VITALS: BP 103/73
[2024-09-11] MEDS ORDERED: ELIQUIS2.5 MG PO (10:00)
[2024-09-11] MEDS ORDERED: TRAMADOL HYDROC50 M1 PO (10:01)
[2024-09-11] MEDS ORDERED: DOXYCYCLINE100 MG PO (10:06)
[2024-09-11 11:21] VITALS: BP 92/53
[2024-09-11 14:59] VITALS: BP 115/65
--- NOTE | 2024-09-11 15:30 | NUR ---
Discharge instructions given. Patient verbalizes understanding of same. Discharged in stable condition via Medical Transport to [facility] with *Other. All belongings sent with pt. PT IS GOING TO A FACILITY. PT IS A&O X4; STABLE. IV IS OUT AND TELE WAS RETURNED TO ER.
[2024-09-28] MEDS ORDERED: ATORVASTATIN CA80 MG PO (21:49)
[2024-09-28] MEDS ORDERED: ELIQUIS5 MG PO (21:50)
== END 2024-09-11 15:43 ==
LOC: ED 13:38 → ED-I 18:00 → ED 18:06 → MS2 18:07
PROVIDERS: Family Medicine; Nurse Practitioner; Nurse Practitioner Family; ADMIT Internal Medicine; ATTEND Internal Medicine
DX: N17.9 Acute kidney failure, unspecified (principal); R74.8 Abnormal levels of other serum enzymes; J18.9 Pneumonia, unspecified organism; J44.0 Chronic obstructive pulmonary disease with (acute) lower respiratory infection; E11.22 Type 2 diabetes mellitus with diabetic chronic kidney disease; I13.0 Hypertensive heart and chronic kidney disease with heart failure and stage 1 through stage 4 chronic kidney disease, or unspecified chronic kidney disease; N18.9 Chronic kidney disease, unspecified; I50.22 Chronic systolic (congestive) heart failure; I48.91 Unspecified atrial fibrillation; E78.5 Hyperlipidemia, unspecified; I25.10 Atherosclerotic heart disease of native coronary artery without angina pectoris; F17.200 Nicotine dependence, unspecified, uncomplicated; Z79.84 Long term (current) use of oral hypoglycemic drugs; Z95.1 Presence of aortocoronary bypass graft
CPT/HCPCS: G0378; J0456; J0696

== ENCOUNTER 2024-10-03 14:44 | Emergency (ER) | payer MEDICARE, MEDICAID ==
[2024-10-03] VITALS (17 sets, daily range): BP systolic 95–138; BP diastolic 57–94
[~2024-10-03] VITALS: Ht 165.1 cm; Wt 76.0 kg
[~2024-10-03 14:44] MED LIST changes: +ATORVASTATIN CA80 MG PO; +BREZTRI AEROSPH1 AER; +DOXYCYC MONO100 M3 PO; +ELIQUIS2.5 MG PO
[2024-10-03] MEDS ORDERED: ASPIRIN 81 MG/TAB PO ONE (15:00)
[2024-10-03 15:03] LABS: BASO% 0.7 % (0-3); EOS% 7.3 % (0-8); HEMOGLOBIN 13.1 g/dl (14.0-18.0); IMMATURE GRANULOCYTES 0.2 % (0.0-5.0); LYMPH% 9.3 % (15-41); MEAN CELL VOLUME 80.5 fL CALC (80.0-100.0); MEAN CORPUSCULAR HGB 24.5 pG CALC (26.0-32.0); MEAN CORPUSCULAR HGB CONC 30.5 g/dL CAL (32.0-36.0); MONO% 8.2 % (2-13); NEUT# 8.01 thou/uL (1.82-7.42); NEUT% 74.3 % (42-76); RED BLOOD COUNT 5.34 mill/uL (4.70-6.10); RED CELL DISTRI WIDTH 19.2 % (11.5-15.5)
[2024-10-03 15:41] LABS: BILIRUBIN, TOTAL 1.2 mg/dL (0.2-1.3); CREATININE 1.5 mg/dL (0.7-1.3); POTASSIUM 3.7 mmol/l (3.5-5.1); TOTAL PROTEIN 6.4 g/dL (6.3-8.2)
[2024-10-03 15:42] LABS: ALBUMIN 3.3 g/dL (3.2-5.0)
== END 2024-10-03 19:00 | disposition home or self-care (01) ==
LOC: ED 14:44
PROVIDERS: Family Medicine
DX: R07.9 Chest pain, unspecified (principal); I11.0 Hypertensive heart disease with heart failure; I50.9 Heart failure, unspecified; I48.91 Unspecified atrial fibrillation; Z79.84 Long term (current) use of oral hypoglycemic drugs; Z95.0 Presence of cardiac pacemaker